=== PATIENT | female | born 1955 | race Caucasian/White ===

== ENCOUNTER 2024-06-11 07:36 | Outpatient (CLI) | payer OTHER ==
[2024-06-11] MEDS ORDERED: Iopamidol 370 76% 100 ML VIAL ONE (10:21)
== END 2024-06-11 07:37 | disposition home or self-care (01) ==
LOC: CSHCT 07:36
PROVIDERS: ATTEND Family Medicine
DX: R10.31 Right lower quadrant pain (principal); R31.0 Gross hematuria; K59.00 Constipation, unspecified; K44.9 Diaphragmatic hernia without obstruction or gangrene; Z98.890 Other specified postprocedural states
CPT/HCPCS: 36415; 74178; 82565; Q9967

== ENCOUNTER 2024-06-16 08:12 | Outpatient (CLI) | payer OTHER | END 2024-06-16 08:13 | disposition home or self-care (01) | LOC: CSHULT 08:12 | PROVIDERS: ATTEND Family Medicine | DX: R31.0 Gross hematuria (principal) | CPT/HCPCS: 76856 ==